=== PATIENT | male | born 1955 | race Caucasian/White ===

== ENCOUNTER 2022-06-16 14:12 | Outpatient (CLI) | payer BC | END 2022-06-16 14:13 | disposition home or self-care (01) | LOC: CSHMRI 14:12 | PROVIDERS: ATTEND Nurse Practitioner Family | DX: M16.0 Bilateral primary osteoarthritis of hip (principal); M25.551 Pain in right hip; M25.552 Pain in left hip; M25.851 Other specified joint disorders, right hip; M85.68 Other cyst of bone, other site; M25.852 Other specified joint disorders, left hip ==